=== PATIENT | male | born 2000 | race Two or more races ===

== ENCOUNTER 2019-07-22 19:03 | Emergency (ER) | payer MEDICAID ==
[~2019-07-22] VITALS: Ht 172.7 cm; Wt 59.0 kg
[2019-07-22 19:30] VITALS: BP 124/84
--- NOTE | 2019-07-22 19:35 | NUR ---
ER Nurse Note: Pt walked in c/o LLQ pain since a few hrs. Pt stated he was playing volleyball and felt pain. Pt has a hx of abd surgey on Apr. Pt denies vomiting, chest pain. Bowel sounds heard in all quadrants, firm LLQ on palpation. Will continue to monitor.
--- NOTE | 2019-07-22 20:11 | NUR ---
ER Nurse Note: x-ray taken; awaiting results. Will continue to montior.
--- NOTE | 2019-07-22 20:18 | Emergency Room Report ---
History of Present Illness General Chief Complaint: Abdominal Pain Source: Patient Present Illness HPI Disclaimer: Please note that this report is being documented using [employer] technology. This can lead to erroneous entry secondary to incorrect interpretation by the dictating instrument. HPI: 18-year-old otherwise healthy male presents for evaluation of abdominal discomfort. Symptoms began 2 days ago. He was playing volleyball and noted some nausea and abdominal cramping. Denies vomiting, diarrhea, chest pain, shortness of breath, cough, fever, chills or other changes in his health. He has been eating and drinking at his baseline. He had a laparoscopic appendectomy approximately 4 months ago complicated by bowel obstruction. He is concerned he has a bowel obstruction again or hernia. He notes minor discomfort over the laparoscopy site in the left lower quadrant. Denies any bleeding, wound dehiscence or drainage. Denies any mass or other palpable abnormality. Does not remember lifting anything heavy, specific injury, denies testicular pain, groin mass, dysuria, hematuria or flank pain. Otherwise in his usual state of health. PMH: Appendicitis PSH: Laparoscopic appendectomy Allergies: Denies Social Hx: Denies Allergies: Coded Allergies: No Known Allergies (Unverified , 07/22/19) Nursing Documentation-PMH Hx Asthma: Yes Review of Systems All Other Systems: negative except mentioned in HPI Physical Exam Vital Signs Date Time Temp Pulse Resp B/P (MAP) Pulse Ox O2 Delivery O2 Flow Rate FiO2 07/22/19 19:18 98.2 88 19 124/84 (97) 98 Room Air General: Awake and alert, no acute distress HEENT: NC/AT. EOMI. Resp: Normal work of breathing Abdomen: Soft, nontender, nondistended, no obvious laxity in the abdominal wall , no hernia appreciable. : Uncircumcised male, testes in anatomic position, nontender, no groin mass. Skin: Intact. No abrasions, laceration or rash over the exposed skin MSK: Normal tone and bulk. Moving all extremities. No obvious deformity. Neuro: Awake and alert. Mentating appropriately Medical Decision Making Diagnostic Impression: Primary Impression: Nausea Additional Impression: Abdominal cramping ER Course This a 19-year-old male presenting for evaluation of nausea of several days duration and vague abdominal discomfort. Differential includes was not limited to gastritis, gastroenteritis, bowel obstruction, hematoma, hernia, UTI, epididymitis. Patient is well-appearing, no palpable defects are appreciated. He has no reproducible tenderness and at this point has no nausea. He is very anxious appearing and an x-ray was ordered to evaluate for obstruction given his past medical history. It is unremarkable and he feels reassured. Do not believe he requires other imaging or emergent labs at this time. He will be discharged to follow-up with his PMD. He has an appointment in 2 days in his office. Will discharge with Doreen. Discussed reasons to return to the emergency department. He understands and agrees with this treatment plan. Other X-Ray Diagnostic Results Other X-Ray Diagnostic Results : X-Ray ordered: Abdomen Indication: Pain EP Interpretation: Yes PA Xray: Interpretation reviewed Interpretation: nonspecific bowel gas, no sbo Impression: No acute disease Electronically Signed by: Electronically signed by Dr. Joesph Chavez Last Vital Signs Date Time Temp Pulse Resp B/P (MAP) Pulse Ox O2 Delivery O2 Flow Rate FiO2 07/22/19 19:30 88 19 Room Air 07/22/19 19:30 98.2 124/84 98 Disposition: HOME, SELF-CARE Condition: Stable Scripts Ondansetron Odt* (ZOFRAN ODT*) 4 Mg Tab.rapdis 4 MG BC EVERY 6 HOURS PRN for Nausea & Vomiting, #10 TAB 0 Refills Prov: Joesph Chavez MD 07/22/19 Joesph Chavez MD Jul 22, 2019 20:18
[2019-07-22] MEDS ORDERED: ONDANSETRON ODT4 MG BC (20:27)
--- NOTE | 2019-07-22 20:38 | Diagnostic Imaging Report ---
Indication: Abdominal pain Comparison: None Single view of the abdomen obtained Findings: Bowel gas pattern is nonspecific. No mass, ectopic calcifications, or abnormal gas collections are identified. The bones are unremarkable. Impression: No acute findings
[2019-07-22 20:45] VITALS: BP 124/84
--- NOTE | 2019-07-22 20:45 | NUR ---
ER Nurse Note: Pt is medically cleared to be discharged per ERMD. Discharge instructions and prescriptions given with repeat verbalization by pt. Emphazied pt follow up with [facility] within 3-5 days for further care. Pt is AOx4, VSS, on RA; no signs of acute distress. ID band removed. Pt is able to ambulate with steady gait. Pt took all belongings.
== END 2019-07-22 20:45 | disposition home or self-care (01) ==
LOC: EMR 19:56
DX: R10.9 Unspecified abdominal pain (principal); R11.0 Nausea; Z90.89 Acquired absence of other organs
CPT/HCPCS: 74018; Z7502; 99283

== ENCOUNTER 2019-11-16 16:28 | Emergency (ER) | payer MEDICAID ==
[~2019-11-16] VITALS: Ht 175.3 cm; Wt 59.0 kg
[~2019-11-16 16:28] MED LIST: ONDANSETRON ODT4 MG BC
[2019-11-16 16:47] VITALS: BP 119/83
--- NOTE | 2019-11-16 16:50 | NUR ---
ED Nurse Note: Pt ambulated to ED from home due to abdominal pain with sharpness started last night. Per pt, pain is on RT regions radiating to his LT side. Placed on bed and gown. VSS, on RA; afebrile on triage. will continue to monitor.
[2019-11-16] MEDS ORDERED: Omnipaque-300 100ml vial INJ PRN (17:00)
--- NOTE | 2019-11-16 17:00 | Emergency Room Report ---
History of Present Illness General Chief Complaint: Abdominal Pain Source: Patient Present Illness HPI Disclaimer: Please note that this report is being documented using [employer] technology. This can lead to erroneous entry secondary to incorrect interpretation by the dictating instrument. HPI: 19-year-old male presents for evaluation of abdominal pain. Patient complaining of intermittent pain in the right lower quadrant and down into the right hip for the past week. Seems to be exacerbated by laying flat and somewhat better by motion. Denies associated nausea, vomiting, diarrhea, dysuria, hematuria, flank pain, testicular pain, fever or chills. Otherwise in his usual state of health. Pain is currently minimal. He had a laparoscopic appendectomy approximately 8 months ago complicated by bowel obstruction. Denies any recent trauma. He was sent by his doctor concern of possible hernia. PMH: Appendicitis PSH: Laparoscopic appendectomy Allergies: Denies Social Hx: Denies Allergies: Coded Allergies: No Known Allergies (Unverified , 07/22/19) COVID-19 Screening Contact w/high risk pt: No Recent Travel to affected area: No Experienced COVID-19 symptoms?: No COVID-19 Testing performed [employer]: No Nursing Documentation-PMH Past Medical History: No History, Except For Hx Asthma: Yes Review of Systems All Other Systems: negative except mentioned in HPI Physical Exam Vital Signs Date Time Temp Pulse Resp B/P (MAP) Pulse Ox O2 Delivery O2 Flow Rate FiO2 11/16/19 16:34 98.2 110 20 119/83 (95) 95 Room Air General: Awake and alert, no acute distress HEENT: NC/AT. EOMI. Cardiovascular: RRR. S1 and S2 normal. No murmur appreciated Resp: Normal work of breathing. No cough, wheezing or crackles appreciated Abdomen: Abdomen is soft, nondistended. Nontender : Uncircumcised male, testes anatomic position, testes nontender, no palpable defects. Skin: Intact. No abrasions, laceration or rash over the exposed skin MSK: Normal tone and bulk. Moving all extremities. No obvious deformity. Neuro: Awake and alert. Mentating appropriately. Medical Decision Making Diagnostic Impression: Primary Impression: Abdominal cramping ER Course 19-year-old male presents for evaluation of abdominal pain. Arrives with stable vital signs, no acute distress, minimal pain at this time. His doctor is concerned over possible hernia as a complication of his laparoscopic surgery which was complicated by bowel obstruction. Will obtain broad labs and CT scan of the abdomen to further evaluate. 1855: No findings of hernia or other significant abnormalities on CT scan of the abdomen pelvis. Labs are within normal limits. Patient remains comfortable and pain-free. Discharged with PMD follow-up. Discussed reasons to return to the emergency department. He understands and agrees with this treatment plan. Laboratory Tests Test 11/16/19 16:55 White Blood Count 7.6 K/UL (4.8-10.8) Red Blood Count 5.30 M/UL (4.70-6.10) Hemoglobin 15.8 G/DL (14.2-18.0) Hematocrit 47.7 % (42.0-52.0) Mean Corpuscular Volume 90 FL (80-99) Mean Corpuscular Hemoglobin 29.7 PG (27.0-31.0) Mean Corpuscular Hemoglobin Concent 33.1 G/DL (32.0-36.0) Red Cell Distribution Width 12.2 % (11.6-14.8) Platelet Count 215 K/UL (150-450) Mean Platelet Volume 7.9 FL (6.5-10.1) Neutrophils (%) (Auto) 71.9 % (45.0-75.0) Lymphocytes (%) (Auto) 17.1 % (20.0-45.0) L Monocytes (%) (Auto) 6.7 % (1.0-10.0) Eosinophils (%) (Auto) 3.5 % (0.0-3.0) H Basophils (%) (Auto) 0.8 % (0.0-2.0) Urine Color Yellow Urine Appearance Clear Urine pH 6 (4.5-8.0) Urine Specific [place] 1.020 (1.005-1.035) Urine Protein 1+ (NEGATIVE) H Urine Glucose (UA) Negative (NEGATIVE) Urine Ketones Negative (NEGATIVE) Urine Blood 1+ (NEGATIVE) H Urine Nitrite Negative (NEGATIVE) Urine Bilirubin Negative (NEGATIVE) Urine Urobilinogen 1 MG/DL (0.0-1.0) H Urine Leukocyte Esterase Negative (NEGATIVE) Urine RBC 2-4 /HPF (0 - 0) H Urine WBC 0-2 /HPF (0 - 0) Urine Squamous Epithelial Cells None /LPF (NONE/OCC) Urine Bacteria None /HPF (NONE) Urine Mucus Many /LPF (NONE/OCC) H Sodium Level 141 MMOL/L (136-145) Potassium Level 3.8 MMOL/L (3.5-5.1) Chloride Level 103 MMOL/L (98-107) Carbon Dioxide Level 30 MMOL/L (21-32) Anion Gap 8 mmol/L (5-15) Blood Urea Nitrogen 13 mg/dL (7-18) Creatinine 1.1 MG/DL (0.55-1.30) Estimated Glomerular Filtration Rate > 60 mL/min (>60) Glucose Level 114 MG/DL (74-106) H Calcium Level 9.5 MG/DL (8.5-10.1) Total Bilirubin 0.5 MG/DL (0.2-1.0) Aspartate Amino Transferase (AST) 16 U/L (15-37) Alanine Aminotransferase (ALT) 17 U/L (12-78) Alkaline Phosphatase 61 U/L (46-116) Total Protein 7.9 G/DL (6.4-8.2) Albumin 4.6 G/DL (3.4-5.0) Globulin 3.3 g/dL Albumin/Globulin Ratio 1.4 (1.0-2.7) Lipase 117 U/L (73-393) CT/MRI/US Diagnostic Results CT/MRI/US Diagnostic Results : Impression [facility] Patient: GIANNA COOK (Male) : 89 Status: ER Date: 11/16/19 18:17 Room #: History: ABD PAIN Slices: 0 Priors: Tech: Exam request generated by [email or web address] interface Exams: CT ABDOMEN & PELVIS With Contrast Contrast: Referring Phy: TANK GRADY Ordering Phy: Joesph Chavez MD Accession Numbers: [id number] Final Report EXAM: CT Abdomen and Pelvis With Intravenous Contrast CLINICAL HISTORY: ABD PAIN TECHNIQUE: Axial computed tomography images of the abdomen and pelvis with intravenous contrast. CTDI is 3.1 mGy and DLP is 163.9 mGy-cm. One or more of the following dose reduction techniques were used: automated exposure control, adjustment of the mA and/or kV according to patient size, use of iterative reconstruction technique. COMPARISON: No relevant prior studies available. FINDINGS: Lung bases: Unremarkable. No mass. No consolidation. ABDOMEN: Liver: Unremarkable. No mass. Gallbladder and bile ducts: Unremarkable. No calcified stones. No ductal dilation. Pancreas: Unremarkable. No mass. No ductal dilation. Spleen: Unremarkable. No splenomegaly. Adrenals: Unremarkable. No mass. Kidneys and ureters: Unremarkable. No solid mass. No hydronephrosis. Stomach and bowel: Unremarkable. PELVIS: Appendix: Status post appendectomy. Bladder: Unremarkable. No mass. Reproductive: Unremarkable as visualized. ABDOMEN and PELVIS: Intraperitoneal space: Unremarkable. No free air. No significant fluid collection. Bones/joints: No acute fracture. No dislocation. Soft tissues: Unremarkable. Vasculature: Unremarkable. No abdominal aortic aneurysm. Lymph nodes: Unremarkable. No enlarged lymph nodes. IMPRESSION: No acute abnormality within the abdomen or pelvis. Radiologist: Cole Lugo MD Electronically Signed: 11/16/19 18:36 Study ready at 18:20 and initial results transmitted at 18:36 Last Vital Signs Date Time Temp Pulse Resp B/P (MAP) Pulse Ox O2 Delivery O2 Flow Rate FiO2 11/16/19 16:47 105 20 Room Air 11/16/19 16:47 98.2 119/83 95 Disposition: HOME, SELF-CARE Condition: Stable Joesph Chavez MD November 16, 2019 17:00
[2019-11-16 17:21] LABS: BASOPHILS % (AUTO) 0.8 % (0.0-2.0); EOSINOPHILS % (AUTO) 3.5 % (0.0-3.0); HEMATOCRIT 47.7 % (42.0-52.0); HEMOGLOBIN 15.8 G/DL (14.2-18.0); LYMPHOCYTES % (AUTO) 17.1 % (20.0-45.0); MEAN CORPUSCULAR VOLUME 90 FL (80-99); MONOCYTES % (AUTO) 6.7 % (1.0-10.0); NEUTROPHILS % (AUTO) 71.9 % (45.0-75.0); PLATELET COUNT 215 K/UL (150-450); RED CELL DISTRIBUTION WIDTH 12.2 % (11.6-14.8); WHITE BLOOD COUNT 7.6 K/UL (4.8-10.8)
[2019-11-16 17:22] LABS: APPEARANCE,URINE CLEAR; BILIRUBIN, URINE NEGATIVE (NEGATIVE); GLUCOSE, URINE (UA) NEGATIVE (NEGATIVE); KETONES,URINE NEGATIVE (NEGATIVE); LEUKOCYTE ESTERASE ,URINE NEGATIVE (NEGATIVE); NITRITE,URINE NEGATIVE (NEGATIVE); PH,URINE 6 (4.5-8.0); PROTEIN,URINE 1+ (NEGATIVE); UROBILINOGEN,URINE 1 MG/DL (0.0-1.0)
[2019-11-16 17:23] LABS: COLOR,URINE YELLOW
[2019-11-16 17:35] LABS: ANION GAP 8 mmol/L (5-15); BLOOD UREA NITROGEN 13 mg/dL (7-18); CALCIUM 9.5 MG/DL (8.5-10.1); CARBON DIOXIDE 30 MMOL/L (21-32); CHLORIDE 103 MMOL/L (98-107); CREATININE 1.1 MG/DL (0.55-1.30); POTASSIUM 3.8 MMOL/L (3.5-5.1); SODIUM 141 MMOL/L (136-145)
[2019-11-16 17:40] LABS: ALANINE AMINOTRANSFERASE 17 U/L (12-78); ALBUMIN 4.6 G/DL (3.4-5.0); ALBUMIN/GLOBULIN RATIO 1.4 (1.0-2.7); ALKALINE PHOSPHATASE 61 U/L (46-116); ASPARTATE AMINO TRANSFERASE 16 U/L (15-37); BILIRUBIN,TOTAL 0.5 MG/DL (0.2-1.0)
--- NOTE | 2019-11-16 18:37 | Diagnostic Imaging Report ---
EXAM: CT Abdomen and Pelvis With Intravenous Contrast CLINICAL HISTORY: ABD PAIN TECHNIQUE: Axial computed tomography images of the abdomen and pelvis with intravenous contrast. CTDI is 3.1 mGy and DLP is 163.9 mGy-cm. One or more of the following dose reduction techniques were used: automated exposure control, adjustment of the mA and/or kV according to patient size, use of iterative reconstruction technique. COMPARISON: No relevant prior studies available. FINDINGS: Lung bases: Unremarkable. No mass. No consolidation. ABDOMEN: Liver: Unremarkable. No mass. Gallbladder and bile ducts: Unremarkable. No calcified stones. No ductal dilation. Pancreas: Unremarkable. No mass. No ductal dilation. Spleen: Unremarkable. No splenomegaly. Adrenals: Unremarkable. No mass. Kidneys and ureters: Unremarkable. No solid mass. No hydronephrosis. Stomach and bowel: Unremarkable. PELVIS: Appendix: Status post appendectomy. Bladder: Unremarkable. No mass. Reproductive: Unremarkable as visualized. ABDOMEN and PELVIS: Intraperitoneal space: Unremarkable. No free air. No significant fluid collection. Bones/joints: No acute fracture. No dislocation. Soft tissues: Unremarkable. Vasculature: Unremarkable. No abdominal aortic aneurysm. Lymph nodes: Unremarkable. No enlarged lymph nodes. IMPRESSION: No acute abnormality within the abdomen or pelvis.
[2019-11-16 19:04] VITALS: BP 119/83
--- NOTE | 2019-11-16 19:04 | NUR ---
ER DISCHARGE NOTE: Patient is cleared to be discharged per ERMD, pt is aox4, on room air, with stable vital signs. pt was given dc and prescription instructions, pt was able to verbalize understanding, pt id band and iv site removed without complications. pt is able to ambulate with steady gait. pt took all belongings.
== END 2019-11-16 19:04 | disposition home or self-care (01) ==
LOC: EMR 17:11
DX: R10.31 Right lower quadrant pain (principal); M25.551 Pain in right hip; Z90.89 Acquired absence of other organs
CPT/HCPCS: 36415; 74177; 80053; 81003; 83690; 85025; Q9967; Z7502; 99284